=== PATIENT | male | born 1935 | race American Indian/Alaskan Native ===

== ENCOUNTER 2021-07-18 09:44 | Day surgery (SDC) | payer MEDICARE ==
[2021-07-18] VITALS (10 sets, daily range): BP systolic 104–121; BP diastolic 50–68
[~2021-07-18] VITALS: Ht 177.8 cm; Wt 97.0 kg
[~2021-07-18 09:44] MED LIST: ACET-1025 PO
[2021-07-18] MEDS ORDERED: LORazepam 0.5 MG tablet PO PRN (10:10)
[2021-07-18] MEDS ORDERED: diphenhydrAMINE 25mg capsule PO PRN (10:10)
[2021-07-18 10:46] LABS: BASOPHILS # (AUTO) 0.1 X10'3 (0-0.2); BASOPHILS % (AUTO) 1.2 % (0-1); EOSINOPHILS # (AUTO) 0.1 X10'3 (0-0.9); EOSINOPHILS % (AUTO) 1.4 % (0-6); HEMATOCRIT 45.8 % (42.0-52.0); HEMOGLOBIN 15.5 g/dl (14.0-17.9); LYMPHOCYTES # (AUTO) 1.2 X10'3 (1.1-4.8); LYMPHOCYTES % (AUTO) 18.9 % (21-51); MEAN CORPUSCULAR HEMOGLOBIN 31.7 PG (27.0-31.0); MEAN CORPUSCULAR VOLUME 93.5 FL (78-98); MEAN PLATELET VOLUME 7.7 FL (7.4-10.4); MONOCYTES # (AUTO) 0.5 X10'3 (0-0.9); NEUTROPHILS # (AUTO) 4.7 X10'3 (1.8-7.7); NEUTROPHILS % (AUTO) 70.5 % (42-75); PLATELET COUNT 221 X10'3 (140-440); RED CELL DISTRIBUTION WIDTH 14.1 % (11.5-14.5); WHITE BLOOD COUNT 6.6 X10'3 (4.5-11.0)
[2021-07-18 10:55] LABS: PARTIAL THROMBOPLASTIN TIME 32 SECONDS (22-32)
[2021-07-18 11:05] LABS: ALBUMIN 3.8 G/DL (3.4-5.0); ANION GAP 7 (8-16); BLOOD UREA NITROGEN 22 MG/DL (7-18); CALCIUM 8.9 MG/DL (8.5-10.1); CHLORIDE 107 MMOL/L (99-107); GLUCOSE 93 MG/DL (70-104); SODIUM 142 MMOL/L (135-145); TOTAL CARBON DIOXIDE 28.4 MMOL/L (24-32); eGFR 64 ML/MIN
[2021-07-18] MEDS ORDERED: ATOR10TA70 PO (11:19)
[2021-07-18] MEDS ORDERED: METO25TA6 PO (11:19)
[2021-07-18] MEDS ORDERED: ISOS30TA84 PO (11:19)
[2021-07-18] MEDS ORDERED: nitroGLYCERIN-Tridil 50MG/D5W 250 ML IV ONE (12:46)
[2021-07-18] MEDS ORDERED: midazolam 1 mg/ML 2ml injection ONE (12:47)
[2021-07-18] MEDS ORDERED: fentaNYL/PF 50MCG/1 ML 2ML syringe ONE (12:47)
[2021-07-18] MEDS ORDERED: iohexol 350MG/ML 100ml bottle IV ONE ×3 (12:47→14:19)
[2021-07-18] MEDS ORDERED: heparin 1,000unit/ml 10ml vial 10 ML ONE ×3 (12:47→14:41)
[2021-07-18] MEDS ORDERED: LIDOcaine 1% (10mg/ml)w/preservative injection 20ml MDV ONE (12:47)
[2021-07-18] MEDS ORDERED: heparin 1,000 UNITS/NS 500ml 500 ML ONE ×2 (12:47→12:52)
[2021-07-18] MEDS ORDERED: verapamil 2.5 mg/ml inj IV ONE (12:47)
[2021-07-18] MEDS ORDERED: iohexol 350 MG/ML 50ML vial IV ONE (12:47)
[2021-07-18] MEDS ORDERED: heparin 25,000 UNIT/250ml bag 250 ML IV ONE (13:55)
[2021-07-18] MEDS ORDERED: clopidogrel 300mg tablet ONE (14:24)
[2021-07-18] MEDS ORDERED: aspirin 325mg tablet ONE (14:44)
[2021-07-18 14:52] LABS: ISTAT HGB ART 14.3 g/dl (14.0-18.0); ISTAT Hct ART 42 %PCV (42-52); ISTAT O2 SATURATION ARTERIAL 97 % (95-98); ISTAT SOURCE ART
[2021-07-18 15:05] LABS: ISTAT Hct MIX 41 %PCV (42-52); ISTAT O2 SATURATION MIX VENOUS 57 % (60-80); ISTAT SOURCE VEN
[2021-07-18] MEDS ORDERED: clopidogrel 300mg tablet PO ONE (15:25)
[2021-07-18] MEDS ORDERED: normal saline 1000ml 1,000 ML IV SCH (15:25)
[2021-07-18] MEDS ORDERED: aspirin 325mg tablet, delayed-release (Ecotrin) PO ONE (15:25)
[2021-07-19] MEDS ORDERED: clopidogrel 75mg tablet PO SCH (08:00)
== END 2021-07-18 20:30 | disposition home or self-care (01) ==
LOC: SSTAY O 09:44
PROVIDERS: ATTEND Internal Medicine Cardiovascular Disease
DX: R06.02 Shortness of breath (principal); I25.119 Atherosclerotic heart disease of native coronary artery with unspecified angina pectoris; E78.5 Hyperlipidemia, unspecified; G47.33 Obstructive sleep apnea (adult) (pediatric); G89.29 Other chronic pain; I35.2 Nonrheumatic aortic (valve) stenosis with insufficiency; Z79.01 Long term (current) use of anticoagulants; Z79.899 Other long term (current) drug therapy
CPT/HCPCS: 36415; 76937; 80048; 82803; 85014; 85025; 85347; 85610; 85730; 93005; 93460; 99152; 99153; C1725; C1751; C1769; C1874; C1894; C9600; J1644; J2001; J2250; J3010; Q0163; Q9967; A4620; A5120; A6258; J3490

== ENCOUNTER → 2023-09-22 | Outpatient (CLI) | payer MEDICARE ==
[~2023-09-22] MED LIST changes: +ATOR10TA70 PO; +ISOS30TA84 PO; +METO25TA6 PO
== END | disposition home or self-care (01) ==
LOC: 64 CT 13:40
PROVIDERS: ATTEND Specialist
DX: M19.011 Primary osteoarthritis, right shoulder (principal); M25.511 Pain in right shoulder; M25.411 Effusion, right shoulder
CPT/HCPCS: 73200

== ENCOUNTER 2023-10-14 11:02 | Outpatient (CLI) | payer MEDICARE ==
[~2023-10-14] VITALS: Ht 177.8 cm; Wt 96.2 kg
[2023-10-14] MEDS ORDERED: CLOP75TA34 PO (12:03)
[2023-10-14] MEDS ORDERED: ASPI81TA52 PO (12:03)
[2023-10-14] MEDS ORDERED: FLO0.4C PO (12:03)
[2023-10-14] MEDS ORDERED: ATOR40TA PO (12:03)
[2023-10-14 12:31] LABS: BILIRUBIN,URINE NEGATIVE (Neg); CLARITY,URINE CLEAR (Clear); COLOR,URINE YELLOW (Yellow); GLUCOSE, URINE NEGATIVE (Neg); KETONES,URINE NEGATIVE (Neg); LEUKOCYTE ESTERASE ,URINE NEGATIVE (Neg); NITRITES, URINE NEGATIVE (Neg); OCCULT BLOOD,URINE NEGATIVE (Neg); PROTEIN,URINE NEGATIVE (Neg); UROBILINOGEN,URINE 0.2 E.U/dL (0.2-1.0)
[2023-10-14 12:31] LABS: BASOPHILS # (AUTO) 0.1 X10'3 (0-0.2); MONOCYTES # (AUTO) 0.6 X10'3 (0-0.9); PRE OP HEMOGLOBIN 14.6 g/dL (14.0-17.9)
[2023-10-14 12:34] LABS: BASOPHILS % (AUTO) 0.7 % (0-1); EOSINOPHILS # (AUTO) 0.2 X10'3 (0-0.9); EOSINOPHILS % (AUTO) 2.1 % (0-6); LYMPHOCYTES % (AUTO) 12.6 % (21-51); MEAN CORPUSCULAR HEMOGLOBIN 31.5 PG (27.0-31.0); MEAN CORPUSCULAR HGB CONC 33.5 g/dL (33.0-36.5); MEAN CORPUSCULAR VOLUME 94.1 FL (78-98); MEAN PLATELET VOLUME 8.1 FL (7.4-10.4); NEUTROPHILS # (AUTO) 5.8 X10'3 (1.8-7.7); NEUTROPHILS % (AUTO) 76.6 % (42-75); PRE OP HEMATOCRIT 43.7 % (42.0-52.0); PRE OP PLATELET COUNT 186 X10'3 (140-440); PRE OP WHITE BLOOD COUNT 7.6 10'3 (4.8-10.8); RED BLOOD COUNT 4.65 X10'6 (4.70-6.10); RED CELL DISTRIBUTION WIDTH 14.6 % (11.5-14.5)
[2023-10-14 12:44] LABS: PRE OP INR 1.1 INR; PRE OP PROTIME 11.4 SECONDS (9.0-12.0)
[2023-10-14 12:45] LABS: UA COLLECTION TYPE CLN CATCH MIDSTREAM
[2023-10-14 12:49] LABS: ALBUMIN 3.8 G/DL (3.4-5.0); ALBUMIN/GLOBULIN RATIO 1.3 (1.1-1.5); ALKALINE PHOSPHATASE 90 IU/L (46-116); BLOOD UREA NITROGEN 22 MG/DL (7-18); BUN/CREATININE RATIO 23.2 (10.0-20.0); CHLORIDE 107 MMOL/L (99-107); CREATININE 0.95 MG/DL (0.60-1.10); PRE OP ALT 25 U/L (30-65); PRE OP ANION GAP 7 (8-16); PRE OP AST 11 U/L (10-37); PRE OP BILIRUB, TOTAL 0.7 MG/DL (0.0-1.0); PRE OP GLUCOSE 103 MG/DL (70-104); PRE OP POTASSIUM 4.5 MMOL/L (3.4-5.1); PRE OP SODIUM 143 MMOL/L (135-145); TOTAL PROTEIN 6.7 G/DL (6.4-8.2); eGFR 75 ML/MIN
[2023-10-21] MEDS ORDERED: ringers solution, lacted 1,000 ML IV SCH (05:00)
[2023-10-21] MEDS ORDERED: DOCUMENT DATE & TIME OF BETA-BLOCKER PO ONE (05:30)
[2023-10-21] MEDS ORDERED: tranexamic acid inj. 1,000 MG in normal saline IV soln 100ML IV ONE (05:30)
[2023-10-21] MEDS ORDERED: cefazolin 2gm/D5W 100mL 100 ML IV ONE (05:30)
[2023-10-21] MEDS ORDERED: famotidine 20mg tablet PO ONE (05:30)
== END 2023-10-14 23:59 | disposition home or self-care (01) ==
LOC: LAB 11:02 → EDSTATUS 10-21 14:30
PROVIDERS: ATTEND Specialist
DX: Z01.818 Encounter for other preprocedural examination (principal); M19.011 Primary osteoarthritis, right shoulder; J98.11 Atelectasis; J98.4 Other disorders of lung; M25.511 Pain in right shoulder
CPT/HCPCS: 36415; 71046; 80053; 81003; 85025; 85610; 85730; 86885; 86900; 86901; 87081; J0690; J3490; J7120

== ENCOUNTER 2023-12-02 05:28 | Inpatient (IN) | payer MEDICARE ==
[2023-11-24 15:13] LABS: BASOPHILS % (AUTO) 0.5 % (0-1); EOSINOPHILS # (AUTO) 0.2 X10'3 (0-0.9); EOSINOPHILS % (AUTO) 2.6 % (0-6); LYMPHOCYTES # (AUTO) 1.1 X10'3 (1.1-4.8); LYMPHOCYTES % (AUTO) 14.2 % (21-51); MEAN CORPUSCULAR HEMOGLOBIN 31.9 PG (27.0-31.0); MEAN CORPUSCULAR HGB CONC 34.2 g/dL (33.0-36.5); MEAN CORPUSCULAR VOLUME 93.5 FL (78-98); MEAN PLATELET VOLUME 8.1 FL (7.4-10.4); MONOCYTES # (AUTO) 0.6 X10'3 (0-0.9); MONOCYTES % (AUTO) 7.6 % (2-12); NEUTROPHILS # (AUTO) 5.7 X10'3 (1.8-7.7); NEUTROPHILS % (AUTO) 75.1 % (42-75); PRE OP HEMATOCRIT 42.4 % (42.0-52.0); PRE OP HEMOGLOBIN 14.5 g/dL (14.0-17.9); PRE OP PLATELET COUNT 187 X10'3 (140-440); PRE OP WHITE BLOOD COUNT 7.6 10'3 (4.8-10.8); RED BLOOD COUNT 4.54 X10'6 (4.70-6.10); RED CELL DISTRIBUTION WIDTH 14.3 % (11.5-14.5)
[2023-11-24 15:23] LABS: APTT 32 SECONDS (22-32); INR 1.1 INR; PROTHROMBIN TIME 12.1 SECONDS (9.0-12.0)
[2023-11-24 15:24] LABS: ALBUMIN 3.5 G/DL (3.4-5.0); ALBUMIN/GLOBULIN RATIO 1.2 (1.1-1.5); ALKALINE PHOSPHATASE 99 IU/L (46-116); BLOOD UREA NITROGEN 18 MG/DL (7-18); BUN/CREATININE RATIO 18.6 (10.0-20.0); CALCIUM 8.9 MG/DL (8.5-10.1); CHLORIDE 107 MMOL/L (99-107); CREATININE 0.97 MG/DL (0.60-1.10); PRE OP ALT 28 U/L (30-65); PRE OP ANION GAP 10 (8-16); PRE OP AST 15 U/L (10-37); PRE OP BILIRUB, TOTAL 0.5 MG/DL (0.0-1.0); PRE OP GLUCOSE 85 MG/DL (70-104); PRE OP POTASSIUM 4.1 MMOL/L (3.4-5.1); PRE OP SODIUM 145 MMOL/L (135-145); TOTAL CARBON DIOXIDE 28.5 MMOL/L (24-32); TOTAL PROTEIN 6.4 G/DL (6.4-8.2); eGFR 73 ML/MIN
[2023-11-24 15:30] LABS: BILIRUBIN,URINE NEGATIVE (Neg); CLARITY,URINE CLEAR (Clear); COLOR,URINE YELLOW (Yellow); GLUCOSE, URINE NEGATIVE (Neg); KETONES,URINE NEGATIVE (Neg); LEUKOCYTE ESTERASE ,URINE NEGATIVE (Neg); NITRITES, URINE NEGATIVE (Neg); OCCULT BLOOD,URINE NEGATIVE (Neg); PH,URINE 6.5 (4.8-8.0); PROTEIN,URINE NEGATIVE (Neg)
[2023-11-24 15:35] LABS: UA COLLECTION TYPE CLN CATCH MIDSTREAM
[2023-12-01 09:34] VITALS: BP 103/50; PULSE 44; RESP 16; O2SAT 97
[2023-12-02] VITALS (30 sets, daily range): BP systolic 94–140; BP diastolic 49–78; PULSE 44–121; RESP 12–18; TEMP 97.6–98.2; O2SAT 93–99
[~2023-12-02] VITALS: Ht 177.8 cm; Wt 95.7 kg
[~2023-12-02 05:28] MED LIST changes: -ACET-1025 PO; +ASPI81TA52 PO; -ATOR10TA70 PO; +ATOR40TA PO; +CLOP75TA34 PO; +FLO0.4C PO
[2023-12-02] MEDS ORDERED: tranexamic acid inj. 1,000 MG in normal saline IV soln 100ML IV ONE (05:30)
[2023-12-02] MEDS: ringers solution, lacted 1,000 ML IV SCH ×2 (06:20→08:15)
[2023-12-02] MEDS: famotidine 20mg tablet PO ONE (06:20)
[2023-12-02] MEDS: DOCUMENT DATE & TIME OF BETA-BLOCKER PO ONE (06:21)
[2023-12-02] MEDS: cefazolin 2gm/D5W 100mL 100 ML IV ONE (06:21)
[2023-12-02] MEDS ORDERED: Thrombin (Bovine) 5,000 unit vial TP ONE (06:25)
[2023-12-02] MEDS ORDERED: methylene blue (5mg/ml) 50mg/10ml ampul IV ONE (06:26)
[2023-12-02] MEDS ORDERED: sevoflurane 250ml liquid IH ONE (06:51)
[2023-12-02] MEDS ORDERED: cloNIDine hcl/PF 100mcg/ml inj ONE (06:53)
[2023-12-02] MEDS ORDERED: bisacodyl 10mg suppository rectal RC PRN (06:55)
[2023-12-02] MEDS ORDERED: ondansetron/PF 4mg/2ml inj IV PRN ×2 (06:55→08:15)
[2023-12-02] MEDS ORDERED: diphenhydrAMINE 25mg capsule PO PRN (06:55)
[2023-12-02] MEDS ORDERED: acetaminophen 325mg tablet PO PRN (06:55)
[2023-12-02] MEDS ORDERED: naloxone 0.4 mg/ml inj IV PRN (06:55)
[2023-12-02] MEDS ORDERED: magnesium hydroxide 30ml (MOM) UD suspension PO PRN (06:55)
[2023-12-02] MEDS ORDERED: HYDROcodone/acetaminophen 5mg/325mg tablet PO PRN (06:55)
[2023-12-02] MEDS ORDERED: fentaNYL/PF 50MCG/1 ML 2ML syringe ONE (06:59)
[2023-12-02] MEDS ORDERED: propofol inj 20 ML IV ONE (07:27)
[2023-12-02] MEDS ORDERED: LIDOcaine 2% (20mg/ml) 5ml vial ONE (07:27)
[2023-12-02] MEDS ORDERED: LIDOcaine 1%/PF 5ML 10 MG/ML VIAL ONE (07:27)
[2023-12-02] MEDS ORDERED: dexamethasone sod phosphate 4mg/ml inj. ONE (07:27)
[2023-12-02] MEDS ORDERED: midazolam 1 mg/ML 2ml injection ONE (07:27)
[2023-12-02] MEDS ORDERED: ROPIVAcaine 0.5% (5mg/ml) 30ml vial ONE (07:27)
[2023-12-02] MEDS ORDERED: rocuronium 10mg/ml inj IV ONE (07:27)
[2023-12-02] MEDS ORDERED: ondansetron/PF 4mg/2ml inj ONE (07:32)
[2023-12-02] MEDS: vancomycin 1,000mg inj ONE (07:40)
[2023-12-02] MEDS ORDERED: labetalol 20mg/4ml (5mg/ml) syringe IV PRN (08:15)
[2023-12-02] MEDS ORDERED: morphine 4 MG/ML inj SYRINge IV PRN (08:15)
[2023-12-02] MEDS: acetaminophen 1,000mg/100ml IV 100 ML IV ONE (08:15)
[2023-12-02] MEDS ORDERED: meperidine/PF 25mg/ml syringe IV PRN ×3 (08:15)
[2023-12-02] MEDS ORDERED: hydrALAZINE 20mg/ml inj. IV PRN (08:15)
[2023-12-02] MEDS ORDERED: morphine 2 MG/ML inj. syringe IV PRN (08:15)
[2023-12-02] MEDS ORDERED: proCHLORperazine 10 MG/2 ml inj IV PRN (08:15)
[2023-12-02] MEDS ORDERED: neostigmine methylsulfate 1 MG/ML 10ml vial ONE (09:20)
[2023-12-02] MEDS ORDERED: glycopyrrolate 0.2mg/ml inj ONE (09:20)
[2023-12-02] MEDS: cefazolin 2gm/D5W 100mL 100 ML IV SCH (15:05)
[2023-12-02] MEDS: potassium cl 20mEq in 1/2 NS 1,000 ML IV SCH (16:09)
[2023-12-02] MEDS: HYDROcodone/acetaminophen 5mg/325mg tablet PO PRN (18:07)
[2023-12-02] MEDS: aspirin 81mg, enteric-coated 1 TAB TABLET.DR PO SCH (21:49)
[2023-12-02] MEDS: atorvastatin 20mg tablet PO SCH (21:49)
[2023-12-02] MEDS: metoprolol tartrate 25mg tablet PO SCH (21:53)
[2023-12-03 05:11] VITALS: O2SAT 94
[2023-12-03 06:00] VITALS: BP 107/56; PULSE 63; RESP 15; TEMP 97.5; O2SAT 98
[2023-12-03 07:25] VITALS: RESP 16; O2SAT 98
[2023-12-03] MEDS: tamsulosin 0.4mg capsule PO SCH (07:25)
[2023-12-03] MEDS: clopidogrel 75mg tablet PO SCH (07:26)
[2023-12-03 07:27] LABS: BASOPHILS % (AUTO) 0.3 % (0-1); EOSINOPHILS % (AUTO) 0.1 % (0-6); HEMATOCRIT 41.2 % (42.0-52.0); LYMPHOCYTES # (AUTO) 1.1 X10'3 (1.1-4.8); LYMPHOCYTES % (AUTO) 8.7 % (21-51); MEAN CORPUSCULAR HEMOGLOBIN 31.8 PG (27.0-31.0); MEAN CORPUSCULAR HGB CONC 34.1 g/dL (33.0-36.5); MEAN CORPUSCULAR VOLUME 93.3 FL (78-98); MEAN PLATELET VOLUME 8.5 FL (7.4-10.4); MONOCYTES # (AUTO) 1.3 X10'3 (0-0.9); MONOCYTES % (AUTO) 10.6 % (2-12); NEUTROPHILS % (AUTO) 80.3 % (42-75); PLATELET COUNT 207 X10'3 (140-440); RED BLOOD COUNT 4.41 X10'6 (4.70-6.10); RED CELL DISTRIBUTION WIDTH 13.9 % (11.5-14.5); WHITE BLOOD COUNT 12.4 X10'3 (4.5-11.0)
[2023-12-03 07:43] LABS: ANION GAP 8 (8-16); CHLORIDE 105 MMOL/L (99-107); POTASSIUM 4.4 MMOL/L (3.5-5.1); SODIUM 138 MMOL/L (135-145); TOTAL CARBON DIOXIDE 25.1 MMOL/L (24-32)
[2023-12-03] MEDS: isosorbide mononitrate 30mg tab.SR.24H PO SCH (08:00)
[2023-12-03 10:00] VITALS: BP 104/62; PULSE 72; RESP 18; TEMP 97.8; O2SAT 93
[2023-12-03 15:40] VITALS: RESP 16
== END 2023-12-03 16:54 | disposition home or self-care (01) | DRG 483 ==
LOC: PAS IN 05:28 → UNDOADMIN 05:28 → PAS IN 07:04 → ORTHO 4S 17:20
PROVIDERS: ADMIT Specialist; ATTEND Specialist
PROC: 0LS30ZZ Reposition Right Upper Arm Tendon, Open Approach (ICD-10-PCS; 2023-12-02)
PROC: 0RRJ00Z Replacement of Right Shoulder Joint with Reverse Ball and Socket Synthetic Substitute, Open Approach (ICD-10-PCS; principal; 2023-12-02 06:51)
DX: M19.011 Primary osteoarthritis, right shoulder (principal); I25.10 Atherosclerotic heart disease of native coronary artery without angina pectoris; N40.0 Benign prostatic hyperplasia without lower urinary tract symptoms; M75.101 Unspecified rotator cuff tear or rupture of right shoulder, not specified as traumatic; E78.5 Hyperlipidemia, unspecified; Z79.82 Long term (current) use of aspirin; Z95.5 Presence of coronary angioplasty implant and graft; Z79.899 Other long term (current) drug therapy; Z79.01 Long term (current) use of anticoagulants
CPT/HCPCS: 36415; 73030; 76000; 80051; 80053; 81003; 82948; 85025; 85610; 85730; 86885; 86900; 86901; 87081; 97110; 97161; 97530; 97535; A4565; A4615; A4618; A6449; A6455; A6590; A7000; C1716; G0378; J0690; J0735; J1100; J2250; J2405; J2704; J2710; J2795; J3010; J3370; J3480; J3490; J7120; Q9968